=== PATIENT | male | born 1990 | race Caucasian/White ===

== ENCOUNTER 2021-12-30 12:49 | Emergency (ER) | payer MEDICAID ==
[~2021-12-30] VITALS: Ht 167.6 cm; Wt 72.6 kg
--- NOTE | 2021-12-30 12:54 | NUR ---
Patient to ER bed 03 to gown for evaluation. Side rails up.
[2021-12-30 12:59] VITALS: BP_SYST 133
--- NOTE | 2021-12-30 13:05 | NUR ---
ER at bedside examining patient.
--- NOTE | 2021-12-30 13:10 | NUR ---
Pt to bed #3 coming from home ambulatory with steady gait. Skin intact. Pt c/o bilateral ankle pain that has been going on for months. No trauma. Pt is A&Ox4. No chest pain and no sob. VSS. NKA. Has hx of pre-diabetic. Bed in lowest position.
[2021-12-30] MEDS ORDERED: NAPR-690 PO (13:16)
[2021-12-30 13:30] VITALS: BP_SYST 124
--- NOTE | 2021-12-30 13:30 | NUR ---
Patient given written and verbal discharge instructions and verbalizes understanding. ER MD discussed with patient the results and treatment provided. Patient in stable condition. ID arm band removed. Rx of Naproxen given. Patient educated on pain management and to follow up with PMD. Pain Scale . Opportunity for questions provided and answered. Medication side effect fact sheet provided.
== END 2021-12-30 13:30 | disposition home or self-care (01) ==
LOC: SED 12:49
DX: G89.29 Other chronic pain (principal); M25.571 Pain in right ankle and joints of right foot; Z79.899 Other long term (current) drug therapy
CPT/HCPCS: 82962; 99282